=== PATIENT | female | born 1995 | race African-American/Black ===

== ENCOUNTER 2017-01-28 15:44 | Observation (INO) | payer MEDICAID ==
[~2017-01-28] VITALS: Ht 170.2 cm; Wt 59.0 kg
[2017-01-28] MEDS ORDERED: PREN-88 PO (16:13)
== END 2017-01-28 17:40 | disposition home or self-care (01) ==
LOC: L&D 15:44
PROVIDERS: ADMIT Specialist; ATTEND Specialist
DX: O26.892 Other specified pregnancy related conditions, second trimester (principal); R10.9 Unspecified abdominal pain; V49.60XA Unspecified car occupant injured in collision with unspecified motor vehicles in traffic accident, initial encounter; Y93.89 Activity, other specified; Y92.488 Other paved roadways as the place of occurrence of the external cause; Y99.8 Other external cause status; Z3A.22 22 weeks gestation of pregnancy
CPT/HCPCS: 76805; 99281; G0378

== ENCOUNTER 2017-11-23 10:00 | Emergency (ER) | payer MEDICAID ==
[~2017-11-23] VITALS: Ht 170.2 cm; Wt 59.0 kg
[~2017-11-23 10:00] MED LIST: PREN-88 PO
[2017-11-23 10:55] VITALS: BP 124/83
== END 2017-11-23 14:28 | disposition left against medical advice (07) ==
LOC: ER 10:56
DX: Z53.21 Procedure and treatment not carried out due to patient leaving prior to being seen by health care provider (principal)

== ENCOUNTER 2019-06-09 09:26 | Emergency (ER) | payer MEDICAID ==
[~2019-06-09] VITALS: Ht 170.2 cm; Wt 59.0 kg
[2019-06-09 10:34] VITALS: BP 118/80
== END 2019-06-09 10:37 | disposition home or self-care (01) ==
LOC: ER 09:26
DX: Z04.1 Encounter for examination and observation following transport accident (principal)
CPT/HCPCS: 99281

== ENCOUNTER 2021-08-13 16:46 | Emergency (ER) | payer MEDICAID | END 2021-08-13 18:06 | disposition left against medical advice (07) | LOC: ER 16:46 | DX: Z53.21 Procedure and treatment not carried out due to patient leaving prior to being seen by health care provider (principal) ==

== ENCOUNTER 2022-02-11 09:25 | Emergency (ER) | payer MEDICAID ==
[~2022-02-11] VITALS: Ht 170.2 cm; Wt 59.0 kg
[2022-02-11 10:31] VITALS: BP 120/75
== END 2022-02-11 10:32 | disposition home or self-care (01) ==
LOC: ER 09:25
DX: H00.011 Hordeolum externum right upper eyelid (principal); F12.10 Cannabis abuse, uncomplicated
CPT/HCPCS: 99281

== ENCOUNTER 2022-03-06 09:01 | Emergency (ER) | payer MEDICAID ==
[~2022-03-06] VITALS: Ht 167.6 cm; Wt 63.0 kg
[2022-03-06] MEDS ORDERED: IBUPROFEN 400MG TABLET PO ONE (11:15)
[2022-03-06 11:23] VITALS: BP 114/78
== END 2022-03-06 12:36 | disposition home or self-care (01) ==
LOC: ER 10:09
DX: S92.321A Displaced fracture of second metatarsal bone, right foot, initial encounter for closed fracture (principal); S92.331A Displaced fracture of third metatarsal bone, right foot, initial encounter for closed fracture; S92.341A Displaced fracture of fourth metatarsal bone, right foot, initial encounter for closed fracture; W22.8XXA Striking against or struck by other objects, initial encounter; Y93.01 Activity, walking, marching and hiking; Y92.89 Other specified places as the place of occurrence of the external cause
CPT/HCPCS: 29515; 73630; 99283

== ENCOUNTER 2023-02-13 16:12 | Emergency (ER) | payer MEDICAID ==
[~2023-02-13] VITALS: Ht 170.2 cm; Wt 59.0 kg
[2023-02-13 16:21] VITALS: BP 103/73
== END 2023-02-13 18:20 | disposition home or self-care (01) ==
LOC: ER 16:12
DX: Z00.00 Encounter for general adult medical examination without abnormal findings (principal); F15.10 Other stimulant abuse, uncomplicated
CPT/HCPCS: 99281